=== PATIENT | male | born 1940 | race Caucasian/White ===

== ENCOUNTER 2023-12-16 08:32 | Outpatient (CLI) | payer MEDICARE, OTHER, SELFPAY ==
--- NOTE | 2023-12-16 08:44 | XR_ITS ---
FINAL REPORT CLINICAL HISTORY: foot pain FINDINGS: Left foot Three views were obtained. There is no acute fracture or dislocation. The bones are osteopenic. There is marked flattening and deformity of the calcaneus, probably due to sequela of prior fracture. 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 There are mild hypertrophic changes of the 1st metatarsophalangeal. No soft tissue abnormality is identified. IMPRESSION: Degenerative and chronic appearing findings. Reviewed, Interpreted and Dictated by Nic Perez MD Transcribed by Aruna Yanes Authenticated and . [facility]
--- NOTE | 2023-12-16 08:44 | XR_ITS ---
FINAL REPORT CLINICAL HISTORY: foot pain FINDINGS: Right foot Three views were obtained. There is no acute fracture or dislocation. The bones are osteopenic. There is flattening of the distal portion of the 2nd metatarsal. No associated sclerosis is identified. No soft tissue abnormality is identified. IMPRESSION: Flattening of the distal 2nd metatarsal, may be degenerative. Reviewed, Interpreted and Dictated by Nic Perez MD Transcribed by Aruna Yanes Authenticated and . [facility]
== END 2023-12-16 23:59 | disposition home or self-care (01) ==
LOC: RAD 08:35
PROVIDERS: PCP Family Medicine; Visit Provider Podiatrist
DX: M79.671 Pain in right foot (principal); M79.672 Pain in left foot; M19.171 Post-traumatic osteoarthritis, right ankle and foot; M19.172 Post-traumatic osteoarthritis, left ankle and foot
CPT/HCPCS: 73630

== ENCOUNTER 2023-12-24 10:28 | Outpatient (CLI) | payer MEDICARE, OTHER, SELFPAY ==
--- NOTE | 2023-12-24 10:32 | US_ITS ---
FINAL REPORT CLINICAL HISTORY: discoloation of the lower extremities, ex-smoker, HTN, TIA/CVA, Claudication COMPARISON: None FINDINGS: ANKLE-BRACHIAL PRESSURE INDICES Pressure indices are as follows: RIGHT LOWER EXTREMITY: Ankle-brachial pressure index: 1.13 Comments: Normal LEFT LOWER EXTREMITY: Ankle-brachial pressure index: 1.11 Comments: Normal CONCLUSION: No evidence of significant obstructive peripheral vascular disease of the lower extremities Reviewed, Interpreted and Dictated by Wild Tejada III, MD Transcribed by Rosalee Fish Authenticated and [facility]
== END 2023-12-24 23:59 | disposition home or self-care (01) ==
LOC: RT 10:28
PROVIDERS: PCP Family Medicine; Visit Provider Podiatrist
DX: I73.9 Peripheral vascular disease, unspecified (principal)
CPT/HCPCS: 93923

== ENCOUNTER 2024-08-03 11:48 | Outpatient (CLI) | payer MEDICARE, OTHER, SELFPAY | END 2024-08-03 23:59 | disposition home or self-care (01) | LOC: RT 11:49 | PROVIDERS: PCP Family Medicine; Visit Provider Physician Assistant | DX: I49.1 Atrial premature depolarization (principal); I47.19 Other supraventricular tachycardia; I49.3 Ventricular premature depolarization | CPT/HCPCS: 93270; 93272 ==

== ENCOUNTER 2024-08-24 08:52 | Outpatient (CLI) | payer MEDICARE, OTHER, SELFPAY ==
--- OUTSIDE RECORDS SUMMARY | 2024-08-24 08:57 | XMS_ITS | Data Portability ---
Author Organization ROMI STEVAN Cain [facility] CLOS[facility] Address [address] [place] [address] Care Team Providers Care Extrusion Press Operator Name Role Phone JOHN TAVARES Primary Care Provider Assessment Encounter Date Assessment Date Assessment LastModified by Organization Details LastModified Time 06/15/2022 06/15/2022 RTC in 6 weeks [email or web address] Not available 06/15/2022 12:45:26 07/26/2022 07/26/2022 RTC in 6 weeks Stiolto seems to be the only inhaler that did not cause his stomach upset. It is difficult to tell if it actually helped his breathing. He will do an extended trial of 1 month of Stiolto samples and then 2 weeks without Stiolto and then he will return to decide if he wants a prescription for it. Not available 07/26/2022 10:25:30 09/05/2022 09/05/2022 RTC PRN [email or web address] Not available 08/17 09:30:08 Plan of Treatment Reminders Order Date Submit Date Provider Last Modified By Organization Details Last Modified Time Details Appointments None recorded. Lab None recorded. Referral None recorded. Procedures None recorded. Surgeries None recorded. Imaging None recorded. Medication Orders ipratropium bromide 42 mcg (0.06 %) nasal spray [email or web address] [facility] [address] [place], [address], 08:57:06 Patient TargetsNo targets recorded. Patient InstructionsNo instructions recorded. Reason for Referral None Reported. Results Created Date Observation Date Name Description Value Unit Range Abnormal Flag Note LastModifiedBy Organization Detail LastModifiedTime 06/21/1910/31/2020 CT, chest , w/o contr ast No observ ation record ed. BARCODE Not Available 2022 11:54:10 06/21/19 23 10/02/2019 CT, chest , w/o contr ast No observ ation record ed. BARCODE Not Available 2022 11:54:10 06/21/19 23 06/26/2019 CT, chest , w/o contr ast No observ ation record ed. BARCODE Not Available 2022 11:54:10 06/21/19 23 02/27/2019 CT, chest , w/o contr ast No observ ation record ed. BARCODE Not Available 2022 11:54:11 Result Notes None recorded. Problems Name Problem SNOMED Code Status Onset Date Resolution Date Notes Provider Name and Address Organization Details Recorded Time Chronic obstructive pulmonary disease 84608441 Active 023 LALO AVELAR MD [address] [place] [address], [phone] , [facility] 3 12:45:10 Ex-smoker 8116189 Active 023 LALO AVELAR MD [address] [place] [address], [phone], [facility] 3 12:45:11 Hiatal hernia 00537620 Active 023 LALO AVELAR MD [address] [place] [address], [phone] , [facility] 3 12:45:15 Problem Notes None recorded. Procedures Surgical History Date Name Laterality Status Provider Name and Address Organization Details Recorded Time 06/16/19 23 Airway Resistance completed Manda Nicole [facility] 06/15/2022 11:07:10 06/16/19 23 [facility] 11:07:09 06/16/19 23 Lung Volumes, Plethysmography completed Manda [facility] 06/15/2022 11:07:12 06/16/19 23 Demonstration Aerosol/Generator/N ebulizer/Optichambe r completed [facility] 06/15/2022 11:07:15 06/16/19 23 Spirometry with Bronchodilator completed [facility] 06/15/2022 11:07:19 procedure on foot completed [facility] 06/15/2022 11:11:45 operation on urinary bladder completed [facility] 06/15/2022 11:12:50 Imaging Results None recorded. Procedure Notes None recorded. Medical Equipment None Reported. Allergies Allergen ID Allergen Name Allergen Category Reaction Reaction Severity Criticality Documentation Date Start Date Code Code System Note Provider Name and Address Organization Details Recorded Time 624165 clopidogr el medicatio n Not available Not available Not available 06/15/2022 08838 [facility] 10:55:37 [id number] Brilinta medicatio n Not available Not available Not available 06/15/2022 75663 36 [facility] 10:55:44 Medications Name Sig Start Date Stop Date Status Note LastModified by Organization Details LastModified Time losartan 50 mg tablet Take 1 tablet every day by oral route. active Not Available Not Available No t Available Qvar 80 mcg/actuati on Metered Aerosol oral inhaler Two times a day 06/15 completed Frequ ency: bid;M edica tion Descr iptio n: beclo metha sone; Dosag e:1 inhal ation ; Route :inha latio n; refil ls:0 Not Available Not Available Not Available atorvastati n 80 mg tablet Take 1 tablet every day by oral route. active Not Available Not Available No t Available diltiazem CD 180 mg capsule,ext ended release 24 hr Take 1 capsule every day by oral route. active Not Available Not Available No t Available alendronate 70 mg tablet Take 1 tablet every week by oral route. active Not Available Not Available No t Available tamsulosin 0.4 mg capsule Take 1 capsule every day by oral route. active Not Available Not Available No t Available ipratropium bromide 42 mcg (0.06 %) nasal spray [place] 2 sprays 3 times a day by intranasa l route as needed. 07/26 completed Not Available Not Available Not Available finasteride 5 mg tablet Take 1 tablet every day by oral route. active Not Available Not Available No t Available Aspir-Myranda 325 mg tablet,jian yed release Take 1 tablet every day by oral route. active Not Available Not Available No t Available Calcium-Vit vaughn D Daily active Frequ ency: daily ;Medi catio n Descr iptio n: calci um-vi tamin D; Dosag e:1; Route :oral ; refil ls:0 Not Available Not Available Not Available ProAir HFA 90 mcg/actuati on aerosol inhaler As needed 07/26 completed Frequ ency: prn;M edica tion Descr iptio n: albut padmini; Dosag e:2 inhal ation s; Route :inha latio n; refil ls:0 Not Available Not Available Not Available Vitals Date Recorded Body height Body mass index (BMI) Body weight Oxygen saturation Oxygen saturation in Arterial blood by Pulse oximetry Heart rate Systolic blood pressure Diastolic blood pressure Provider Name and Address Organization Details Last Updated DateTime 3 162.56 cm 22.7 kg/m2 43999.1 9 g 98 % 98 % 93 /min 130 mm[Hg] 70 mm[Hg] Manda Rivera [facility] 3 10:53:58 Date Recorded Body height Body mass index (BMI) Body weight Heart rate Oxygen saturation Oxygen saturation in Arterial blood by Pulse oximetry Systolic blood pressure Diastolic blood pressure Provider Name and Address Organization Details Last Updated DateTime 3 162.56 cm 23.5 kg/m2 18553.8 5 g 64 /min 97 % 97 % 138 mm[Hg] 82 mm[Hg] Nikky Cordova [facility] 3 08:56:20 Date Recorded Body height Body mass index (BMI) Body weight Heart rate Oxygen saturation Oxygen saturation in Arterial blood by Pulse oximetry Systolic blood pressure Diastolic blood pressure Provider Name and Address Organization Details Last Updated DateTime 3 162.56 cm 23.5 kg/m2 14597.1 5 g 70 /min 100 % 100 % 115 mm[Hg] 68 mm[Hg] Leena Bravo [facility] 09:06:26 Social History Question Answer Notes LastModified by Organizat ion Details LastModified Time Tobacco Smoking Status Former Smoker Manda Rivera thad [facility] 06/15/2022 11:08:06 When Did You Quit Smoking? 11-15yearssi ncjaleesa cohente [email or web address] Information not available 06/15/2022 At What Age Did You Start Smoking Tobacco? 20 [email or web address] Information not available 06/15/2022 How Many Years Have You Smoked Tobacco? 50 [email or web address] Information not available 06/15/2022 Have You Recently Traveled Abroad? No Information not available 07/26/2022 Sex: Unknown Functional Status Question Answer Note LastModified by Organizat ion Details LastModified Time Do you use any illicit or recreational drugs? No [email or web address] Information not available 06/15/2022 Do you or have you ever used any other forms of tobacco or nicotine? No [email or web address] Information not available 06/15/2022 What is your level of alcohol consumption? Moderate Information not available 06/15/2022 Are you currently employed? No Information not available 07/26/2022 What is your exercise level? Moderate 3-4 times a week goes to the gym Information not available 07/26/2022 Mental Status None recorded. Family History Relationship Description Onset Age of this Age Resolved Age Notes LastModified by Organization Details LastModified Time Unspecified Relation Family history of stroke [email or web address] Not available 2022 11:08:04 Medical History Condition Response Diabetes N Chronic Obstructive Pulmonary Disease Y Sleep Apnea N Thyroid Disorder N Emphysema N Tuberculosis N Ulcers N Asthma N Pneumonia N Past Encounters Encounter ID Performer Location Encounter Start Date Encounter Closed Date Diagnosis/Indication Diagnosis SNOMED-CT Code Diagnosis ICD10 Code Diagnosis Note [id number] [facility] [address] 06/21/2016 06:15:46 06/21/2016 06:15:46 [id number] LALO AVELAR MD PULMONARY [address], [address] [place] [address] 06/15/2022 10:27:10 06/15/2022 13:04:57 Chronic cough 85569218 R05.3 Multifacto rial. He certainly has COPD and we will send him home with treatments for that. He has had significan t postnasal drip which I think is probably a large airport driver of his cough. I will put him on ipratropiu m for that. Could also has a contributi on from his hiatal hernia. Chronic ob structive pulmonary disease 76824723 J44.9 Stop smoking. Severe by FEV1 1.07 (45%).He is not currently on any maintenanc e inhaler therapy.He does not have hypoxemic respirator y failure from it. We will send him home with samples of Trelegy, Stiolto, and Breztri to cycle 3 over the next couple of weeks. Posterior rhinorrhea 758 18614 R09.82 Hiatal hernia 93936072 K 44.9 Ex-smoker 4902238 Z87.89 1 50-pack-ye ar smoker. Stopped smoking in 2010. Underwent low-dose CT screening from 2018October 2020 until he exceeded the age recommenda tions for low-dose screening. He had both calcified granulomas and noncalcifi ed nodules that were stable during that imaging time. The largest was an 8 mm right upper lobe nodule. He no longer qualifies for low-dose cancer screening, if his cough does not improve with COPD and sinus treatments , I would recommend repeat CT imaging. [id number] LALO AVELAR MD PULMONARY [address] [facility], [address] [place] [address] 07/26/2022 08:45:22 07/26/2022 10:39:56 Chronic cough 62389590 R05.3 Multifacto rial. COPD. Post nasal drip. Hiatal hernia. Chronic ob structive pulmonary disease 81435618 J44.9 Stop smoking. Severe by FEV1 1.07 (45%).He is not currently on any maintenanc e inhaler therapy.He does not have hypoxemic respirator y failure from it. We will send him home with samples of Trelegy, Stiolto, and Breztri to cycle 3 over the next couple of weeks.---- ---------T relegy made him nauseous and gave him hiccups and did not help him. Per history brought no tangible benefit. Stiolto helped him a little bit with out causing many problems. He would like to do a more extended trial of Stiolto. Ex-smoker 9788510 Z87. 1 50-pack-ye ar smoker. Stopped smoking in 2010. Underwent low-dose CT screening from 2018October 2020 until he exceeded the age recommenda tions for low-dose screening. He had both calcified granulomas and noncalcifi ed nodules that were stable during that imaging time. The largest was an 8 mm right upper lobe nodule. He no longer qualifies for low-dose cancer screening, if his cough does not improve with COPD and sinus treatments , I would recommend repeat CT imaging. Posterior rhinorrhea 758 40486 R09.82 Didn't like ipra. Hiatal hernia 15887162 K 44.9 [id number] LALO AVELAR MD PULMONARY [address] [facility], [address] [place] [address] 09/05/2022 08:38:02 09/05/2022 11:00:50 Chronic obstructive pulmonary disease 30896699 J44.9 Stop smoking. Severe by FEV1 1.07 (45%).He is not currently on any maintenanc e inhaler therapy.He does not have hypoxemic respirator y failure from it. We will send him home with samples of Trelegy, Stiolto, and Breztri to cycle 3 over the next couple of weeks.---- ---------A ll inhaler trials gave him indigestio n and loss of appetite and generally made feel ill with no tangible benefit. Without long-actin g inhalers, he feels like he is doing well. He would prefer to just use as needed albuterol. Chronic cough 61415742 R 05.3 Multifacto rial. COPD. Post nasal drip. Hiatal hernia. Ex-smoker 4828397 Z87 1 50-pack-ye ar smoker. Stopped smoking in 2010. Underwent low-dose CT screening from 2018October 2020 until he exceeded the age recommenda tions for low-dose screening. He had both calcified granulomas and noncalcifi ed nodules that were stable during that imaging time. The largest was an 8 mm right upper lobe nodule. He no longer qualifies for low-dose cancer screening, if his cough does not improve with COPD and sinus treatments , I would recommend repeat CT imaging. Posterior rhinorrhea 758 88970 R09.82 Didn't like ipra. Hiatal hernia 90749090 K 44.9 I discussed how this and silent reflux can drive nocturnal cough. Health Concerns Section Related Observation LastModified by Organization Detai ls LastModified Time None Recorded Concern Status LastModified by Organization Details LastModified Time None Recorded Advance Directives Directive None Recorded Payers Insurance Date Sequence Insurance Name Policy Number Policy Young Covered Member ID Young Member ID Guarantor Name 09/05/2022 2 [employer] [place] Robison Drew [id number] Fareed Robison Drew 09/05/2022 1 MEDICARE-[place] (MEDICARE) Fareed Enriqueta Drew [id number] Fareed Russell Notes Date Note Type Note Provider Name and Address Organization Details Recorded Time 06/15/2022 text/html Jax Russell is an 81-year-old white male who comes in for new patient evaluation of COPD. He has a significant smoking history up until 2010 when he stopped smoking. He reports previously being evaluated by Dr. Bueno in roughly 2014 and was diagnosed with COPD at that point in time but was just on albuterol. He reports never being on long-acting maintenance inhalers. His biggest complaint is chronic cough. He coughs throughout the day and he feels like he gets mucus stuck in the back of his throat and he has intense coughing trying to clear it out. He will sometimes cough to the point of emesis. He does deal with chronic sinus drainage and postnasal drip for which she takes Zyrtec-D. He also has a history of a small hiatal hernia and reflux. He Is not limited by shortness of breath with exertion. No hemoptysis. He started getting low-dose CT screening in roughly 2019. He had some abnormal nodularity that led him to visit Dr. Mon who felt like it was order entry representative of MAC. Patient states that he never had bronchoscopy for culture or MAC treatment. He just underwent surveillance imaging. His surveillance imaging stopped in 2010 when he moved out of the age qualifications for annual low-dose CT screening D [place]: Pulmonary function testing 06/15/2022: Severe obstructive ventilatory defect that improves to moderate after significant bronchodilator response. Gas trapping. Normal gas exchange. FEV1 1.07 (45%) FVC 2.19 (69%) ratio 49% post albuterol FEV1 is 1.38 (58%) (+28%) and FVC 2.46 (78%) (+12%). TLC 86% RV 109% DLCO 73% Low-dose CT chest 10/31/2020 report: Compared to imaging from 02/27/2019 and 10/02/2019. Stable 8 mm noncalcified right upper lobe nodule. Other subcentimeter pulmonary nodules are stable. Evidence of prior calcified granulomatous disease. Small hiatal hernia. LALO AVELAR MD [address] [place] [address], [phone], [facility] 06/15/2022 12:46:43 07/26/2022 text/html Interval history : Fareed is doing much better. Shortness of breath is essentially resolved, but he doesn't know if it was from the inhalers I gave him. He is able to walk 2 miles on the treadmill regularly without limitations. He still has some cough but it is generally better. He did not generally have great experiences with any of his medicines that I tried on him. He stopped the ipratropium nose spray because they felt like it hurt his stomach. Likewise, he felt that Trelegy gave him an upset stomach and nausea and hiccups and did not improve his breathing or cough. He felt that Breztri while it did not cause him any problems, did not cause him anything that he felt was an improvement. He says the jury is still out on Stiolto. It did not cause him any problems he thinks it might of improved his breathing a little bit and his cough some, but he would like to do a more extended trial of the Stiolto. ------Historical HPI:Jax Russell is an 81-year-old white male who comes in for new patient evaluation of COPD. He has a significant smoking history up until 2010 when he stopped smoking. He reports previously being evaluated by Dr. Bueno in roughly 2014 and was diagnosed with COPD at that point in time but was just on albuterol. He reports never being on long-acting maintenance inhalers. His biggest complaint is chronic cough. He coughs throughout the day and he feels like he gets mucus stuck in the back of his throat and he has intense coughing trying to clear it out. He will sometimes cough to the point of emesis. He does deal with chronic sinus drainage and postnasal drip for which she takes Zyrtec-D. He also has a history of a small hiatal hernia and reflux. He Is not limited by shortness of breath with exertion. No hemoptysis. He started getting low-dose CT screening in roughly 2018. He had some abnormal nodularity that led him to visit Dr. Mon who felt like it was order entry representative of MAC. Patient states that he never had bronchoscopy for culture or MAC treatment. He just underwent surveillance imaging. His surveillance imaging stopped in 2010 when he moved out of the age qualifications for annual low-dose CT screening D [place]: Pulmonary function testing 06/15/2022: Severe obstructive ventilatory defect that improves to moderate after significant bronchodilator response. Gas trapping. Normal gas exchange. FEV1 1.07 (45%) FVC 2.19 (69%) ratio 49% post albuterol FEV1 is 1.38 (58%) (+28%) and FVC 2.46 (78%) (+12%). TLC 86% RV 109% DLCO 73% Low-dose CT chest 10/31/2020 report: Compared to imaging from 02/27/2019 and 10/02/2019. Stable 8 mm noncalcified right upper lobe nodule. Other subcentimeter pulmonary nodules are stable. Evidence of prior calcified granulomatous disease. Small hiatal hernia. LALO AVELAR MD [address] [place] [address], [phone], [facility] 07/26/2022 10:25:49 09/05/2022 text/html Interval history : Fareed is doing well now. His trial with Stiolto did not go well. He felt like it caused him to have significant indigestion and loss of appetite. Since stopping his Stiolto, his stomach issues have resolved. No significant shortness of breath. No wheezing. He prefers to use just as needed albuterol. -Fareed is doing much better. Shortness of breath is essentially resolved, but he doesn't know if it was from the inhalers I gave him. He is able to walk 2 miles on the treadmill regularly without limitations. He still has some cough but it is generally better. He did not generally have great experiences with any of his medicines that I tried on him. He stopped the ipratropium nose spray because they felt like it hurt his stomach. Likewise, he felt that Trelegy gave him an upset stomach and nausea and hiccups and did not improve his breathing or cough. He felt that Breztri while it did not cause him any problems, did not cause him anything that he felt was an improvement. He says the jury is still out on Stiolto. It did not cause him any problems he thinks it might of improved his breathing a little bit and his cough some, but he would like to do a more extended trial of the Stiolto. ------Historical HPI:Jax Russell is an 81-year-old white male who comes in for new patient evaluation of COPD. He has a significant smoking history up until 2010 when he stopped smoking. He reports previously being evaluated by Dr. Bueno in roughly 2014 and was diagnosed with COPD at that point in time but was just on albuterol. He reports never being on long-acting maintenance inhalers. His biggest complaint is chronic cough. He coughs throughout the day and he feels like he gets mucus stuck in the back of his throat and he has intense coughing trying to clear it out. He will sometimes cough to the point of emesis. He does deal with chronic sinus drainage and postnasal drip for which she takes Zyrtec-D. He also has a history of a small hiatal hernia and reflux. He Is not limited by shortness of breath with exertion. No hemoptysis. He started getting low-dose CT screening in roughly 2018. He had some abnormal nodularity that led him to visit Dr. Mon who felt like it was order entry representative of MAC. Patient states that he never had bronchoscopy for culture or MAC treatment. He just underwent surveillance imaging. His surveillance imaging stopped in 2010 when he moved out of the age qualifications for annual low-dose CT screening D [place]: Pulmonary function testing 06/15/2022: Severe obstructive ventilatory defect that improves to moderate after significant bronchodilator response. Gas trapping. Normal gas exchange. FEV1 1.07 (45%) FVC 2.19 (69%) ratio 49% post albuterol FEV1 is 1.38 (58%) (+28%) and FVC 2.46 (78%) (+12%). TLC 86% RV 109% DLCO 73% Low-dose CT chest 10/31/2020 report: Compared to imaging from 02/27/2019 and 10/02/2019. Stable 8 mm noncalcified right upper lobe nodule. Other subcentimeter pulmonary nodules are stable. Evidence of prior calcified granulomatous disease. Small hiatal hernia. LALO AVELAR MD [address] [place] [address], [phone], [facility] 09/05/2022 09:31:30
--- OUTSIDE RECORDS SUMMARY | 2024-08-24 08:57 | XMS_ITS | Clinical Summary ---
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 L97.422 (ICD-10-CM ) 07/03 Active 07/03 Ruth Esparza Non-pressure chronic ulcer of left heel and midfoot with fat layer exposed Non-pressure chronic ulcer of left heel limited to breakdown of skin L97.421 (ICD-10-CM ) 07/03 Active 07/03 Ruth Esparza Non-pressure chronic ulcer of left heel and midfoot limited to breakdown of skin Cellulitis, foot, left 496176511 (SNOMED CT) 07/03 Active 07/03 Ruth Esparza Cellulitis of foot Osteomyeliti s, chronic, left heel M86.679 (ICD-10-CM ) 04/14 Resolved 04/14 Ruth Esparza Other chronic osteomyelitis, unspecified ankle and foot Benign Essential Hypertension 78352429 (SNOMED CT) 07/03 Active 07/03 Ruth Esparza Benign hypertension Hereditary or idiopathic neuropathy 474806235 (SNOMED CT) 04/14 Active 04/14 Ruth Esparza Neuropathy MRSA INFECTION 968449940 (SNOMED CT) 07/07 Resolved 07/07 Ruth Esparza Methicillin resistant Staphylococcus aureus infection E coli Infection 81996486 (SNOMED CT) 04/14 Resolved 04/14 Ruth Esparza Infection caused by Escherichia coli MSSA infection 228396622 (SNOMED CT) 04/14 Resolved 04/14 Ruth Esparza Infection by methicillin sensitive Staphylococcus aureus Obesity 612462939 (SNOMED CT) 08/03 Correction 08/03 Aundrea Ye RN Obesity Obesity 426264138 (SNOMED CT) 08/03 Removed 08/03 Florin Sanders MD Obesity MRSA INFECTION 703978510 (SNOMED CT) 07/07 Removed 07/07 Ruth Isaias Methicillin resistant Staphylococcus aureus infection Anemia, chronic 673626591 (SNOMED CT) 04/14 Inactive 04/14 Ruth Isaias Chronic anemia Gas gangrene: left foot A48.0 (ICD-10-CM ) 04/14 Inactive 04/14 Ruth Isaias Gas gangrene Fever, unspecified 430857181 (SNOMED CT) 06/03 Inactive 06/03 Ruth Isaias Fever Fever, unspecified 259303240 (SNOMED CT) 06/03 Removed 06/03 Florin Sanders MD Fever MSSA infection 953858441 (SNOMED CT) 04/14 Removed 04/14 Enid Nordan Infection by methicillin sensitive Staphylococcus aureus E coli Infection 56236880 (SNOMED CT) 04/14 Removed 04/14 Enid Nordan Infection caused by Escherichia coli Osteomyeliti s, chronic, left heel M86.679 (ICD-10-CM ) 04/14 Removed 04/14 Enid Nordan Other chronic osteomyelitis, unspecified ankle and foot Gas gangrene: left foot A48.0 (ICD-10-CM ) 04/14 Removed 04/14 Enid Nordan Gas gangrene Anemia, chronic 479928112 (SNOMED CT) 04/14 Removed 04/14 Enid Nordan Chronic anemia peripheral neuropathy 002860291 (SNOMED CT) 04/14 Inactive 04/14 Enid Norddariana Peripheral nerve disease Medications Medication Instructions Start Date Stop Date Generic Name NDC Provider METOPROLOL TARTRATE 25 MG TABS bid metoprolol tartrate 70247454486 Viri Cordova BACTRIM 400-80 MG TABS bid for 1- days sulfamethoxazole -trimethoprim 87653556234 Viri Cordova ZYRTEC ALLERGY TABLET ZYRTEC ALLERGY TABLET Marnie Minor ADULT ASPIRIN LOW STRENGTH 81 MG ORAL TABLET DISINTEGRATING ADULT ASPIRIN LOW STRENGTH 81 MG ORAL TABLET DISINTEGRATING Marnie Minor HYDROXYZINE HCL 10 MG TABS hydroxyzine hcl 88014364957 Marnie Minor ALIGN CAPSULE ALIGN CAPSULE Marnie Minor VITAMIN C TABLET VITAMIN C TABLET Marnie Minor DOXYCYCLINE HYCLATE 100 MG CAPS 1 by mouth twice a day doxycycline hyclate 52035291416 Marnie Minor IRON TABLET IRON TABLET Marnie Minor HYDROCODONE-ACETA MINOPHEN TABS HYDROCODONE-ACET AMINOPHEN TABS Marnie Minor LOMOTIL 2.5-0.025 MG TABS diphenoxylate-at ropine 73132505553 Marnie Minor FINASTERIDE 5 MG TABS by mouth once a day finasteride 81239971885 Marnie Minor TAMSULOSIN HCL 0.4 MG CAPS by mouth once a day tamsulosin 03031912338 Marnie Minor BREZTRI AEROSPHERE 160-9-4.8 MCG/ACT AERO as directed budesonide-glyco pyr-formoterol 98270271912 Marnie Minor ALENDRONATE SODIUM 70 MG TABS by mouth once a week alendronate 17401536518 Marnie Minor NAPROSYN 500 MG TABS by mouth twice a day naproxen 55124484204 Marnie Minor ASPIRIN 325 MG TABS by mouth once a day aspirin 00546063788 Marnie Minor DILTIAZEM HCL ER COATED BEADS 360 MG [id number] by mouth once a day diltiazem hcl (cardizem cd) 29007234437 Marnie Minor LOSARTAN POTASSIUM 50 MG TABS by mouth once a day losartan 43287342094 Marnie Minor ATORVASTATIN CALCIUM 40 MG TABS by mouth 2 tabs QD atorvastatin 65610453829 Marnie Minor VENTOLIN HFA 108 (90 Base) MCG/ACT AERS as directed albuterol sulfate 86897102863 Marnie Minor PREDNISONE 20 MG TABS by mouth prednisone 01956564353 Marnie Minor ZYRTEC ALLERGY TABS CETIRIZINE HCL TABS 30149427189 Florin Sanders MD ADULT ASPIRIN LOW STRENGTH 81 MG ORAL TABLET DISINTEGRATING ASPIRIN 24902007013 Florin Sanders MD INVANZ 1 GM INTRAVENOUS SOLUTION RECONSTITUTED 1 gm IV daily [facility] ERTAPENEM SODIUM 21961966393 Brittney Z FORTAZ (IV) 1GM IV q12hr IP 277-2012 [facility] [phone] FORTAZ (IV) Brittney Z DOXYCYCLINE HYCLATE 100 MG CAPS One po bid x 30 d DOXYCYCLINE HYCLATE 97052925022 Florin Sanders MD ALIGN CAPSULE PROBIOTIC PRODUCT CAPS 39168460890 Florin Sanders MD VITAMIN C TABLET ASCORBIC ACID TABS 25676502061 Florin Sanders MD IRON TABS FERROUS GLUCONATE TABS 99696314513 Florin Sanders MD LOMOTIL TABS DIPHENOXYLATE-AT ROPINE TABS 33078835520 Florin Sanders MD HYDROXYZINE HCL TABS HYDROXYZINE HCL TABS 15936464981 Florin Sanders MD FORTAZ (IV) 1GM IV q12hr IP 277-2012 [facility] [phone] Christie Townsend RN VANCOMYCIN HCL 750 MG SOLR 1GM IV q12hr IP 277-2012 [facility] [phone] VANCOMYCIN HCL 00036584585 Christie Townsend RN VANCOMYCIN HCL 750 MG SOLR 750mg IV q12hr IP 277-2012 [facility] [phone] VANCOMYCIN HCL 61963909830 Christie Townsend RN HYDROCODONE-ACETA MINOPHEN TABS HYDROCODONE-ACET AMINOPHEN TABS 94316969102 Tanisha P ENOXAPARIN SODIUM 30 MG/0.3ML SUBCUTANEOUS SOLUTION INJECT CONTENTS OF 1 SYRINGE UNDER SKIN 2 TIMES A DAY DIRECTED ENOXAPARIN SODIUM 04298256675 Tanisha P ENOXAPARIN SODIUM 30 MG/0.3ML SUBCUTANEOUS SOLUTION INJECT CONTENTS OF 1 SYRINGE UNDER SKIN 2 TIMES A DAY DIRECTED ENOXAPARIN SODIUM 82880682951 Rohit Soriano INVANZ 1 GM INTRAVENOUS SOLUTION RECONSTITUTED 1 gm IV daily [facility] ERTAPENEM SODIUM 64159629391 Tanisha P Medications Administered No information available. Allergies, Adverse Reactions, Alerts No information available. Results Date Name Value Unit Range Flag Description Chart Maintenance: 05/04 labs ESR 14 mm/h Erythrocyte sedimentation rate by Westergren method Chart Maintenance: 06/15 labs MONOCYTE % 12.5 % Monocytes/ 100 leukocytes in Blood by Automated count BILI TOTAL 0.7 mg/dL Bilirubin. total [Mass/volume] in Serum or Plasma CALCIUM 9.6 mg/dL Calcium [Mole s/volume] in Serum or Plasma Chart Maintenance: 06/29/13 l abs ALK PHOS 108 U/L Alkaline kristine sphatase [Enzymatic activity/volume] in Blood SGPT (ALT) 16 U/L Alanine aminotransferase [Enzymatic activity/volume] in Serum or Plasma SGOT (AST) 15 U/L Aspartate aminotransferase [Enzymatic activity/volume] in Serum or Plasma POTASSIUM 4.04 mmol/L Potassium [Moles/volume] in Serum or Plasma SODIUM 138.5 mmol/L Sodium [Moles /volume] in Serum or Plasma CREATININE 0.9 mg/dL Creatinine [Mass/volume] in Serum or Plasma BUN 20 mg/dL Urea nitrogen [Mass/volume] in Serum or Plasma GLUCOSE SER 92 mg/dL Glucose [ Mass/volume] in Serum or Plasma LYMPHS % 10.3 % Lymphocytes/ 100 leukocytes in Blood by Automated count PMN % 63.9 % Neutrophils/1 00 leukocytes in Blood by Automated count PLATELETS 188 10*3/mm3 Platelets [#/volume] in Blood by Automated count HCT 40.4 % Hematocrit [V olume Fraction] of Blood by Automated count HGB 13.1 g/dL Hemoglobin [Mass/volume] in Blood RBC 4.38 10*6/mm3 Erythrocytes [#/volume] in Blood by Automated count WBC 4.6 10*3/mm3 Leukocytes [ #/volume] in Blood by Automated count Chart Maintenance: vancomyci n trough 12.2 06/29 VANCOMY CHAL 12.2 ug/mL vancomyc in level, serum, trough Office Visit: Office Visit:r nicolasaom 9 SMOK STATUS Former smoker Tob acco smoking status MEDS REVIEW Done Documenta tion of current medications (procedure) Plan of Care Type Date Detail Pending order Continue oral an tibiotics Pending order Discontinue IV a ntibiotics Pending order PICC Removal Pending order New Oral Antibio tic Pending order Continue IV anti biotics Pending order Redress Wound Pending order Change IV antibi otics Pending order Continue IV anti biotics Pending order New IV antibioti c Pending order Continue IV anti biotics Pending order Continue IV anti biotics Procedures Code Procedure Name Date Entry Date [id number] PICC line insertion Vital Signs Date Name Value Unit Description BMI (Body Mass Index) 19.79 kg/m2 Bod y Mass Index (Ratio) Body Temperature 97.7 [degF] temperat ure E&M BP Diastolic 72 mm[Hg] blood pressu re, diastolic BP Systolic 142 mm[Hg] blood pressur e, systolic Heart Rate 80 /min pulse rate Height 68 [in_us] height E&M Respiratory Rate 16 /min respirat ory rate E&M Weight Measured 130.2 [lb_av] weight E& M Weight Measured 130.2 [lb_av] weight E& M Immunizations No information available. Advance Directives Directive Description Start Date LIVING WILL ON FILE
--- OUTSIDE RECORDS SUMMARY | 2024-08-24 08:57 | XMS_ITS | Referral Summary ---
Author Organization [facility] Address [address] [place] [address] Care Team Providers Care Plant Supervisor Name Role Phone Unavailable Primary Care Provider Unavailabl e Allergies No known active allergies Medications metoprolol succinate (TOPROL-XL) 50 MG 24 hr tablet Take 1 tablet (50 mg total) by mouth daily. Active tamsulosin (FLOMAX) 0.4 mg Cap 24 hr capsule Take 1 capsule (0.4 mg total) by mouth daily. Active finasteride (PROSCAR) 5 mg tablet Take 1 tablet (5 mg total) by mouth daily. Active aspirin 81 MG EC tablet Take 325 mg by mouth daily. Active Social History Tobacco Use Types Packs/Day Years Used Date Smoking Tobacco: Former Cigarettes Smokeless Tobacco: Never Tobacco Cessation:Counseling Given: Not Answered Alcohol Use Standard Drinks/Week Comments Yes 0 (1 standard drink = 0.6 oz pur e alcohol) Interpersonal Safety Answer Date Record ed Family or friends hurt you Not on file 10/01 Family or friends insult you Not on file Family or friends threaten you Not on file 0 10/02/2023 Family or friends scream or curse at you Not on file 10/02/2023 Food Insecurity Answer Date Recorded Food run out past 12 months Not on file 09/15 Food did not last past 12 months Not on file 10/02/2023 Employment Answer Date Recorded Help finding and keeping a job Not on file 0 10/02/2023 Family and Community Support Answer Po e Recorded Help with Day to Day Activities Not on file 10/02/2023 Feeling Lonely or Isolated Not on file 10/01 Educational Attainment Answer Date Shakir rded Speak language other than Albanian at home Not on file 10/02/2023 Want help with school or training Not on file 10/02/2023 Depression Answer Date Recorded PHQ-2 Risk Not on file 10/02/2023 Disabilities Answer Date Recorded Difficulty concentrating Not on file 024 Difficulty doing errands alone Not on file 0 10/02/2023 Substance Use Answer Date Recorded Used prescription meds for non-medical reasons N ot on file 10/02/2023 Used illegal drugs past 12 months Not on file 10/02/2023 Sex and Gender Information Value Date Recorded Sex Assigned at Not on file 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 Gender Identity Not on file Sexual Orientation Not on file Last Filed Vital Signs Vital Sign Reading Time Taken Comments Blood Pressure 186/85 10/03/2023 10:23 AM EDT Pulse 62 10/03/2023 10:23 AM EDT Temperature 36.5 C (97.7 F) 10/03/2023 10:23 AM EDT Respiratory Rate 16 10/03/2023 10:23 AM EDT Oxygen Saturation 97% 10/03/2023 10:23 AM EDT Inhaled Oxygen Concentration - - Weight 58.8 kg (129 lb 9.6 oz) 10/03/2023 10:23 AM EDT Height 170.2 cm (5' 7 ) 10/03/2023 10:23 AM EDT Body Mass Index 20.3 10/03/2023 10:23 AM EDT Plan of Treatment Not on file Insurance MEDICARE PART A B MEDICARE PART A B MEDICARE [place] [address] [place] [address]
--- OUTSIDE RECORDS SUMMARY | 2024-08-24 08:57 | XMS_ITS | Clinical Summary ---
Author Organization [facility] Address [address] [place] [address] Care Team Providers Care Custom Bike Builder Name Role Phone Rene Lovelace MD Primary Care Provider [phone] Social History Tobacco Use Types Packs/Day Years Used Date Smoking Tobacco: Never Assessed Sex and Gender Information Value Date Recorded Sex Assigned at Not on file Legal Sex Male 6:24 PM EDT Gender Identity Not on file Sexual Orientation Not on file Plan of Treatment Health Maintenance Due Date Last Done Comments [facility]-Depression Screening 1941 [facility]-Infant/Child/Adol SDOH Screenings 1941 [facility]- SDOH Screenings 10/29/1959 [facility]-Adult SDOH Screenings 10/29/1959 [facility]-DTaP,Tdap,and Td Vaccine s (1 - Tdap) 1960 [facility]-Pneumococcal Vaccine: 50 + Years (1 of 1 - PCV) 10/29/1991 [facility]-Zoster Vaccines (1 of 2) 10/29/1991 [facility]-RSV Vaccine: 60+ Years o r (1 - 1-dose 75+ series) 2016 [facility]H-[id number]-24 Vaccine (1 - 20 24-25 season) 2023 [facility]-Influenza Vaccine (Seaso n Ended) 2024 HPV Vaccines Aged Out No longer eligi ble based on patient's age to complete this topic [facility]-HIB Vaccines Aged Out No longer e ligible based on patient's age to complete this topic [facility]-Hepatitis A Vaccines Aged Out No longer eligible based on patient's age to complete this topic [facility]-IPV Vaccines Aged Out No longer e ligible based on patient's age to complete this topic [facility]-Rotavirus Vaccines Aged Out No lo nger eligible based on patient's age to complete this topic Care Teams Custom Bike Builder Relationship Specialty Start Date End Date Rene Lovelace MD [address] [id number] PCP - General 07/29/20
--- OUTSIDE RECORDS SUMMARY | 2024-08-24 08:57 | XMS_ITS | Clinical Summary ---
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 Gender Identity Not on file Sexual Orientation [...] 10/03/2023 10:23 AM EDT Plan of Treatment Health Maintenance Due Date Last Done Comments Depression Screening (12+) 1952 DTAP/TDAP/TD VACCINES (1 - Tdap) 1960 Medicare Initial AWV [id number] 10/18/2007 Respiratory Syncytial Virus (RSV) Adult or (1 - 1-dose 75+ series) 2016 COVID-19 VACCINE ( season) 2023 01/18/2021, 06/10/2020, 05/11/2020 Falls Risk Screening 03/18/2024 Tobacco Cessation Counseling and Screening (12+) 10/02/2024 10/03/2023 Influenza Vaccine (Season Ended) 2024 Pneumococcal 50+ years Completed 01/12/2016, 2014 Shingles Vaccine (Zoster) Completed 05/29/2022, Insurance MEDICARE PART A B [place] [address] [place] [address] [address] [place] [address]
[2024-08-24 09:15] LABS: Blood Urea Nitrogen 16 mg/dl (9-20); Estimated Glomerular Filt Rate 72 ml/min (>60); GFR (African American) 87 ML/MIN (>60)
--- NOTE | 2024-08-24 09:30 | CT_ITS ---
FINAL REPORT TECHNIQUE: NASCET technique utilized for stenosis evaluation. CLINICAL HISTORY: HX TIA COMPARISON: None FINDINGS: RIGHT CAROTID: There is mild vascular calcification without significant stenosis identified. LEFT CAROTID: There is moderate vascular calcification producing approximately 50% luminal diameter stenosis of the left carotid bulb. VERTEBRALS: The right vertebral artery is dominant. No significant stenosis is present. Incidental note is made of moderate facet sclerosis in the cervical region. IMPRESSION: Mild vascular calcification without significant stenosis is present in the right carotid artery. Moderate vascular calcification in the left carotid bulb produces approximately 50% luminal diameter stenosis. Antegrade flow is present in the vertebral arteries. Reviewed, Interpreted and Dictated by Nic Perez MD Transcribed by Rosalee Fish Authenticated and [facility]
[2024-08-24] MEDS: 0.9 % SODIUM CHLORIDE 50 ML VIAL IV (10:00)
[2024-08-24] MEDS: SODIUM CHLORIDE 0.9% 10ML SYR (RAD ONLY) 10 ML IV (10:00)
[2024-08-24] MEDS: IOPAMIDOL-370 (76%);100ML BOTTLE 100 ML IV (10:00)
--- NOTE | 2024-08-24 10:45 | CT_ITS ---
FINAL REPORT TECHNIQUE: thin section axial CT with and without IV contrast supplemented with multiplanar 3-D reconstruction of the head. This study was performed with techniques to keep radiation doses as low as reasonably achievable, (ALARA)individualized dose reduction techniques using automated exposure control or adjustment of mA and/or kV according to the patient's size were employed. CLINICAL HISTORY: HX TIA COMPARISON: None FINDINGS: HEAD CT: The ventricles are normal in size. There is no evidence of hemorrhage. No masses are identified. No extra-axial fluid is seen. There is moderate mucoperiosteal thickening of the ethmoid and maxillary sinuses. CTA: The cranial circulation is unremarkable. There is no significant stenosis, aneurysm or occlusion. IMPRESSION: No acute process. Moderate mucoperiosteal thickening of the ethmoid and maxillary sinuses. Reviewed, Interpreted and Dictated by Nic Perez MD Transcribed by Rosalee Fish Authenticated and . [facility]
== END 2024-08-24 23:59 | disposition home or self-care (01) ==
LOC: RAD 08:53
PROVIDERS: PCP Family Medicine; Visit Provider Physician Assistant
DX: J34.89 Other specified disorders of nose and nasal sinuses (principal); R06.09 Other forms of dyspnea; Z86.73 Personal history of transient ischemic attack (TIA), and cerebral infarction without residual deficits
CPT/HCPCS: 36415; 70496; 70498; 82565; 84520; Q9967

== ENCOUNTER 2024-08-27 07:44 | Outpatient (CLI) | payer MEDICARE, OTHER, SELFPAY ==
--- NOTE | 2024-08-27 | CA_ITS ---
APPROVED REPORT Exam: Pharmacologic Technologist: Quyen Sadler Ht: 5 ft 7 in Wt: 126 lbs BSA: 1.66 m2 Medical History Medications: Albuterol, alendronate, aspirin, finasteride, metoprolol succinate ER, tamsulosin Stress Test Details Test: Lexiscan HR Resting HR: 53 bpm Max Heart Rate (APMHR): 138.241034 bpm Max HR Achieved: 79 bpm Target HR (85% APMHR): 117.346928 bpm % of APMHR: 57.25 Recovery HR: 65 bpm BP Resting BP: 167.0/67.0 mmHg Max BP: 181.0/71.0 mmHg Recovery BP: 169.0/77.0 mmHg ECG Resting ECG: SR. No isch or ectopy Stress ECG Conclusion Symptoms: None. Arrhythmias/Ectopy: Rare PVCs. ST-T Changes: None. Electronically signed by : Sandra Canales MD 08/27/2024 14:19:33
--- OUTSIDE RECORDS SUMMARY | 2024-08-27 07:46 | XMS_ITS | Clinical Summary ---
Author Organization [facility] Address [address] [place] [address] Care Team Providers Care Turbine Assembler Name Role Phone Rene Lovelace MD Primary Care Provider [phone] Social History Tobacco Use Types Packs/Day Years [...] r (1 - 1-dose 75+ series) 2016 [id number] Vaccine (1 - 20 24-25 season) 2023 [...] age to complete this topic Care Teams Turbine Assembler Relationship Specialty Start Date End Date Rene Lovelace MD [address] [phone] PCP - General 07/29/20
--- OUTSIDE RECORDS SUMMARY | 2024-08-27 07:46 | XMS_ITS | Referral Summary ---
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
--- OUTSIDE RECORDS SUMMARY | 2024-08-27 07:46 | XMS_ITS | Clinical Summary ---
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
--- OUTSIDE RECORDS SUMMARY | 2024-08-27 07:46 | XMS_ITS | Clinical Summary ---
Author Organization [facility] Address [address] [place] [address] Phone Care Team Providers Care Animal Tech Name Role Phone Wild Zaidi MD [phone] [ ] Conditions or Problems Problem Name [...] to breakdown of skin Cellulitis, foot, left 748118892 (SNOMED CT) 07/03 Active 07/03 Ruth Esparza Cellulitis of foot Osteomyeliti s, chronic, left heel M86.679 (ICD-10-CM ) 04/14 Resolved 04/14 Ruth Esparza Other chronic osteomyelitis, unspecified ankle and foot Benign Essential Hypertension 44145960 (SNOMED CT) 07/03 Active 07/03 Ruth Esparza Benign hypertension Hereditary or idiopathic neuropathy 001420330 (SNOMED CT) 04/14 Active 04/14 Ruth Esparza Neuropathy MRSA INFECTION 655426286 (SNOMED CT) 07/07 Resolved 07/07 Ruth Esparza Methicillin resistant Staphylococcus aureus infection E coli Infection 81944141 (SNOMED CT) 04/14 Resolved 04/14 Ruth Esparza Infection caused by Escherichia coli MSSA infection 710388464 (SNOMED CT) 04/14 Resolved 04/14 Ruth Esparza Infection by methicillin sensitive Staphylococcus aureus Obesity 071224012 (SNOMED CT) 08/03 Correction 08/03 Aundrea Ye RN Obesity Obesity 159025680 (SNOMED CT) 08/03 Removed 08/03 Florin Sadners MD Obesity MRSA INFECTION 207955645 (SNOMED CT) 07/07 Removed 07/07 Ruth Isaias Methicillin resistant Staphylococcus aureus infection Anemia, chronic 943439716 (SNOMED CT) 04/14 Inactive 04/14 Ruth Isaias Chronic anemia Gas gangrene: left foot A48.0 (ICD-10-CM ) 04/14 Inactive 04/14 Ruth Isaias Gas gangrene Fever, unspecified 031702433 (SNOMED CT) 06/03 Inactive 06/03 Ruth Isaias Fever Fever, unspecified 631393824 (SNOMED CT) 06/03 Removed 06/03 Florin Sanders MD Fever MSSA infection 147458471 (SNOMED CT) 04/14 Removed 04/14 Enid Nordan Infection by methicillin sensitive Staphylococcus aureus E coli Infection 10865880 (SNOMED CT) 04/14 Removed 04/14 Enid Nordan Infection caused by Escherichia coli Osteomyeliti s, chronic, left heel M86.679 (ICD-10-CM ) 04/14 Removed 04/14 Enid Nordan Other chronic osteomyelitis, unspecified ankle and foot Gas gangrene: left foot A48.0 (ICD-10-CM ) 04/14 Removed 04/14 Enid Nordan Gas gangrene Anemia, chronic 287171961 (SNOMED CT) 04/14 Removed 04/14 Enid Nordan Chronic anemia peripheral neuropathy 444164639 (SNOMED CT) 04/14 Inactive 04/14 Enid Norddariana Peripheral nerve disease Medications Medication Instructions Start Date Stop Date Generic Name NDC Provider METOPROLOL TARTRATE 25 MG TABS bid metoprolol tartrate 56425230697 Viri Cordova BACTRIM 400-80 MG TABS bid for 1- days sulfamethoxazole -trimethoprim 43734273761 Viri Cordova ZYRTEC ALLERGY TABLET ZYRTEC ALLERGY TABLET Marnie Minor ADULT ASPIRIN LOW STRENGTH 81 MG ORAL TABLET DISINTEGRATING ADULT ASPIRIN LOW STRENGTH 81 MG ORAL TABLET DISINTEGRATING Marnie Minor HYDROXYZINE HCL 10 MG TABS hydroxyzine hcl 83728730306 Marnie Minor ALIGN CAPSULE ALIGN CAPSULE Marnie Minor VITAMIN C TABLET VITAMIN C TABLET Marnie Minor DOXYCYCLINE HYCLATE 100 MG CAPS 1 by mouth twice a day doxycycline hyclate 92144316389 Marnie Minor IRON TABLET IRON TABLET Marnie Minor HYDROCODONE-ACETA MINOPHEN TABS HYDROCODONE-ACET AMINOPHEN TABS Marnie Minor LOMOTIL 2.5-0.025 MG TABS diphenoxylate-at ropine 90800132433 Marnie Minor FINASTERIDE 5 MG TABS by mouth once a day finasteride 04439526307 Marnie Minor TAMSULOSIN HCL 0.4 MG CAPS by mouth once a day tamsulosin 96867097125 Marnie Minor BREZTRI AEROSPHERE 160-9-4.8 MCG/ACT AERO as directed budesonide-glyco pyr-formoterol 67818722596 Marnie Minor ALENDRONATE SODIUM 70 MG TABS by mouth once a week alendronate 38183304679 Marnie Minor NAPROSYN 500 MG TABS by mouth twice a day naproxen 13761820487 Marnie Minor ASPIRIN 325 MG TABS by mouth once a day aspirin 86006218547 Marnie Minor DILTIAZEM HCL ER COATED BEADS 360 MG [id number] by mouth once a day diltiazem hcl (cardizem cd) 19659032416 Marnie Minor LOSARTAN POTASSIUM 50 MG TABS by mouth once a day losartan 01894568006 Marnie Minor ATORVASTATIN CALCIUM 40 MG TABS by mouth 2 tabs QD atorvastatin 49105639355 Marnie Minor VENTOLIN HFA 108 (90 Base) MCG/ACT AERS as directed albuterol sulfate 00435459142 Marnie Minor PREDNISONE 20 MG TABS by mouth prednisone 19603573107 Marnie Minor ZYRTEC ALLERGY TABS CETIRIZINE HCL TABS 53427687123 Florin Sanders MD ADULT ASPIRIN LOW STRENGTH 81 MG ORAL TABLET DISINTEGRATING ASPIRIN 05479213568 Florin Sanders MD INVANZ 1 GM INTRAVENOUS SOLUTION RECONSTITUTED 1 gm IV daily [facility] ERTAPENEM SODIUM 17374684424 Brittney Z FORTAZ (IV) 1GM IV q12hr IP 277-2012 [facility] [phone] FORTAZ (IV) Brittney Z DOXYCYCLINE HYCLATE 100 MG CAPS One po bid x 30 d DOXYCYCLINE HYCLATE 16364825890 Florin Sanders MD ALIGN CAPSULE PROBIOTIC PRODUCT CAPS 15349661812 Florin Sanders MD VITAMIN C TABLET ASCORBIC ACID TABS 17511540573 Florin Sanders MD IRON TABS FERROUS GLUCONATE TABS 46465313755 Florin Sanders MD LOMOTIL TABS DIPHENOXYLATE-AT ROPINE TABS 24609074982 Florin Sanders MD HYDROXYZINE HCL TABS HYDROXYZINE HCL TABS 50405689479 Florin Sanders MD FORTAZ (IV) 1GM IV q12hr IP 277-2012 [facility] [phone] Christie Townsend RN VANCOMYCIN HCL 750 MG SOLR 1GM IV q12hr IP 277-2012 [facility] [phone] VANCOMYCIN HCL 11947693345 Christie Townsend RN VANCOMYCIN HCL 750 MG SOLR 750mg IV q12hr IP 277-2012 [facility] [phone] VANCOMYCIN HCL 08225877898 Christie Townsend RN HYDROCODONE-ACETA MINOPHEN TABS HYDROCODONE-ACET AMINOPHEN TABS 15013458290 Tanisha P ENOXAPARIN SODIUM 30 MG/0.3ML SUBCUTANEOUS SOLUTION INJECT CONTENTS OF 1 SYRINGE UNDER SKIN 2 TIMES A DAY DIRECTED ENOXAPARIN SODIUM 93105849455 Tanisha P ENOXAPARIN SODIUM 30 MG/0.3ML SUBCUTANEOUS SOLUTION INJECT CONTENTS OF 1 SYRINGE UNDER SKIN 2 TIMES A DAY DIRECTED ENOXAPARIN SODIUM 46012039287 Rohit Soriano INVANZ 1 GM INTRAVENOUS SOLUTION RECONSTITUTED 1 gm IV daily [facility] ERTAPENEM SODIUM 65427744282 Tanisha P Medications Administered No information available. [...] Procedures Code Procedure Name Date Entry Date [id number] PICC line insertion Vital Signs Date Name [...]
--- OUTSIDE RECORDS SUMMARY | 2024-08-27 07:47 | XMS_ITS | Data Portability ---
Author Organization [facility] Address [address] [place] [address] Care Team Providers Care Market President Name Role Phone JOHN TAVARES Primary Care Provider [phone] Assessment Encounter Date Assessment Date Assessment LastModified by Organization Details LastModified Time 06/15/2022 06/15/2022 RTC in 6 weeks [email or web address] Not available 06/15/2022 12:45:26 07/26/2022 07/26/2022 RTC [...] available 07/26/2022 10:25:30 09/05/2022 09/05/2022 RTC PRN [email or web address] Not available 08/17 09:30:08 Plan of Treatment Reminders Order Date Submit Date Provider Last Modified By Organization Details Last Modified Time Details Appointments None recorded. Lab None recorded. Referral None recorded. Procedures None recorded. Surgeries None recorded. Imaging None recorded. Medication Orders ipratropium bromide 42 mcg (0.06 %) nasal spray 2022 023 [email or web address] [facility] [address] [place], [address], 08:57:06 Patient TargetsNo targets recorded. Patient InstructionsNo [...] Details Recorded Time Chronic obstructive pulmonary disease 14880627 Active 023 LALO AVELAR MD [address] [place] [address], [phone] , [facility] 3 12:45:10 Ex-smoker 5219425 Active 023 LALO AVELAR MD [address] [place] [address], [phone], [facility] 3 12:45:11 Hiatal hernia 25937828 Active 023 LALO AVELAR MD [address] [place] [address], [phone] , [facility] 3 12:45:15 Problem Notes None recorded. Procedures Surgical History Date Name Laterality Status Provider Name and Address Organization Details Recorded Time 06/16/19 23 Airway Resistance completed Manda Nicole [facility] 06/15/2022 11:07:10 06/16/19 23 [facility] 11:07:09 06/16/19 23 Lung Volumes, Plethysmography completed Manda [facility] 06/15/2022 11:07:12 06/16/19 23 Demonstration Aerosol/Generator/N ebulizer/Optichambe r completed [facility] 06/15/2022 11:07:15 06/16/19 23 Spirometry with Bronchodilator completed [facility] 06/15/2022 11:07:19 procedure on foot completed [facility] 06/15/2022 11:11:45 operation on urinary bladder completed [facility] 06/15/2022 11:12:50 Imaging Results None recorded. Procedure Notes None recorded. Medical Equipment None Reported. Allergies Allergen ID Allergen Name Allergen Category Reaction Reaction Severity Criticality Documentation Date Start Date Code Code System Note Provider Name and Address Organization Details Recorded Time 351580 clopidogr el medicatio n Not available Not available Not available 06/15/2022 84910 [facility] 10:55:37 226701 Brilinta medicatio n Not available Not available Not available 06/15/2022 09704 36 [facility] 10:55:44 Medications Name Sig Start Date [...] bromide 42 mcg (0.06 %) nasal spray [place] 2 sprays 3 times a day by [...] Updated DateTime 3 162.56 cm 22.7 kg/m2 82586.1 9 g 98 % 98 % 93 /min 130 mm[Hg] 70 mm[Hg] Manda Rivera [facility] 3 10:53:58 Date Recorded Body height Body mass index (BMI) Body weight Heart rate Oxygen saturation Oxygen saturation in Arterial blood by Pulse oximetry Systolic blood pressure Diastolic blood pressure Provider Name and Address Organization Details Last Updated DateTime 3 162.56 cm 23.5 kg/m2 11734.8 5 g 64 /min 97 % 97 % 138 mm[Hg] 82 mm[Hg] Nikky Cordova [facility] 3 08:56:20 Date Recorded Body height Body mass index (BMI) Body weight Heart rate Oxygen saturation Oxygen saturation in Arterial blood by Pulse oximetry Systolic blood pressure Diastolic blood pressure Provider Name and Address Organization Details Last Updated DateTime 3 162.56 cm 23.5 kg/m2 26518.1 5 g 70 /min 100 % 100 % 115 mm[Hg] 68 mm[Hg] Leena Bravo [facility] 09:06:26 Social History Question Answer Notes LastModified by Organizat ion Details LastModified Time Tobacco Smoking Status Former Smoker Manda Rivera thad [facility] 06/15/2022 11:08:06 When Did You Quit Smoking? 11-15yearssi [email or web address] cohente [email or web address] Information not available 06/15/2022 At What Age Did You Start Smoking Tobacco? 20 [email or web address] Information not available 06/15/2022 How Many Years Have You Smoked Tobacco? 50 [email or web address] Information not available 06/15/2022 Have You Recently Traveled Abroad? No Information not available 07/26/2022 Sex: Unknown Functional Status Question Answer Note LastModified by Organizat ion Details LastModified Time Do you use any illicit or recreational drugs? No [email or web address] Information not available 06/15/2022 Do you or have you ever used any other forms of tobacco or nicotine? No [email or web address] Information not available 06/15/2022 What is your level of alcohol consumption? Moderate [email or web address] Information not available 06/15/2022 Are you currently employed? No Information not available 07/26/2022 What is your exercise level? Moderate 3-4 times a week goes to the gym Information not available 07/26/2022 Mental Status None recorded. Family History Relationship Description Onset Age of this Age Resolved Age Notes LastModified by Organization Details LastModified Time Unspecified Relation Family history of stroke [email or web address] Not available 2022 11:08:04 Medical History Condition Response Diabetes N Chronic Obstructive Pulmonary Disease Y Sleep Apnea N Thyroid Disorder N Emphysema N Tuberculosis N Ulcers N Asthma N Pneumonia N Past Encounters Encounter ID Performer Location Encounter Start Date Encounter Closed Date Diagnosis/Indication Diagnosis SNOMED-CT Code Diagnosis ICD10 Code Diagnosis Note [id number] [facility] [address] 06/21/2016 06:15:46 06/21/2016 06:15:46 [id number] LALO AVELAR MD PULMONARY [address] [facility], [address] [place] [address] 06/15/2022 10:27:10 06/15/2022 13:04:57 Chronic cough 07037494 R05.3 Multifacto rial. He certainly has COPD and we will send him home with treatments for that. 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 I will put him on ipratropiu m for that. Could also has a contributi on from his hiatal hernia. Chronic ob structive pulmonary disease 56057528 J44.9 Stop smoking. Severe by FEV1 1.07 (45%).He is not currently on any maintenanc e inhaler therapy.He does not have hypoxemic respirator y failure from it. We will send him home with samples of Trelegy, Stiolto, and Breztri to cycle 3 over the next couple of weeks. Posterior rhinorrhea 758 35783 R09.82 Hiatal hernia 96388731 K 44.9 Ex-smoker 3129173 Z87.89 1 50-pack-ye ar smoker. Stopped smoking [...] , I would recommend repeat CT imaging. [id number] LALO AVELAR MD PULMONARY [address] [facility], [address] [place] [address] 07/26/2022 08:45:22 07/26/2022 10:39:56 Chronic cough 28598457 R05.3 Multifacto rial. COPD. Post nasal drip. Hiatal hernia. Chronic ob structive pulmonary disease 21204140 J44.9 Stop smoking. Severe by FEV1 1.07 [...] a more extended trial of Stiolto. Ex-smoker 4907636 Z87. 1 50-pack-ye ar smoker. Stopped smoking [...] recommend repeat CT imaging. Posterior rhinorrhea 758 62592 R09.82 Didn't like ipra. Hiatal hernia 90332030 K 44.9 [id number] LALO AVELAR MD PULMONARY [address] [facility], [address] [place] [address] 09/05/2022 08:38:02 09/05/2022 11:00:50 Chronic obstructive pulmonary disease 74897548 J44.9 Stop smoking. Severe by FEV1 1.07 [...] just use as needed albuterol. Chronic cough 68607209 R 05.3 Multifacto rial. COPD. Post nasal drip. Hiatal hernia. Ex-smoker 6933279 Z87 1 50-pack-ye ar smoker. Stopped smoking [...] recommend repeat CT imaging. Posterior rhinorrhea 758 83786 R09.82 Didn't like ipra. Hiatal hernia 92845066 K 44.9 I discussed how this and silent reflux can drive nocturnal cough. 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 Patient states that he [...] disease. Small hiatal hernia. LALO AVELAR MD [address] [place] [address], [phone], [facility] 06/15/2022 12:46:43 07/26/2022 text/html Interval history : [...] Dr. Mon who felt like it was patient financial representative of [employer]. Patient states that he [...] disease. Small hiatal hernia. LALO AVELAR MD [address] [place] [address], [phone], [facility] 07/26/2022 10:25:49 09/05/2022 text/html Interval history : [...] Dr. Mon who felt like it was patient financial representative of [employer]. Patient states that he [...] disease. Small hiatal hernia. LALO AVELAR MD [address] [place] [address], [phone], [facility] 09/05/2022 09:31:30
--- NOTE | 2024-08-27 08:00 | NM_ITS ---
APPROVED REPORT Exam: Nuclear Stress Test Indication: soa Patient Location: Outpatient Stress Tech: Quyen Fuentes CT Tech:Kylie CotterMARY RT(R)(N) Ht: 5 ft 7 in Wt: 129 lbs HR: 53 bpm BP: 167/67 mmHg BSA: 1.68 m2 TID: 1.05 BMI: 20.2 History: soa Procedure: Patient received 0.4 mg of intravenous Lexiscan, resting heart rate 53 bpm, resting blood pressure 167/67 mmHg, with Lexiscan maximum heart rate achieved was 70 bpm which is 85 % of the maximum predicted heart rate and blood pressure was 181/71 mmHg. With Lexiscan, patient denied any complaint of chest pain. Cardiac Stress and Resting SPECT Images: Cardiac Stress and Resting SPECT images were obtained using technetium 99m Myoview 31.5 mCi stress and 10.84 mCi at rest. Resting and stress imaging in supine and prone positions demonstrate a large sized, moderate, partially reversible perfusion defect in the inferior wall. Imaging demonstrates normal global LV systolic function. LVEF is calculated at 54%. Conclusion: Large sized, moderate, partially reversible perfusion defect in the inferior wall. Findings are suggestive of partial reversible ischemia. Imaging demonstrates normal global LV systolic function. LVEF is calculated at 54%. Electronically signed by : Sandra Canales MD 08/27/2024 14:18:45
[2024-08-27] MEDS: ISOTOPE MYOVIEW (PER STUDY) 1 DOSE IV (10:26)
[2024-08-27] MEDS: SODIUM CHLORIDE 0.9% 10ML SYR (RAD ONLY) 10 ML IV ×2 (10:26)
[2024-08-27] MEDS: REGADENOSON 0.4MG/5ML SYRINGE 0.4 MG IV (10:26)
--- NOTE | 2024-08-27 10:30 | CA_ITS ---
APPROVED REPORT EXAM: Comprehensive 2D, Doppler, and color-flow Echocardiogram Molder Pipe Covering: Mariana Jones CRT Ht: 5 ft 7 in Wt: 124lbs BSA: 1.65 BP: 158/76 mmHg Indications: Dyspnea 2D Dimensions Left Atrium 3.52 cm LVEF (Ferreira's) 64.10 % RVID Base (AP4) 3.38 cm (M/F) 2.5-4.1 LV Volume 76.30 mL LVOT 2.01 cm (M/F) 1.5-2.5 LA Volume 26.80 mL LA Volume Index 16.20 mL/m2 (M/F) 16-34 EF AP4 69.00 % EF AP2 61.5 % EF BP 64.1 % GL Strain -17.8 % M-Mode Dimensions RVDd 2.56 cm (0.9-2.6) LVDd 4.03 cm (3.5-5.7) Ao Diam 3.34 cm (2.0-3.7) LVDs 1.62 cm (3.5-5.7) IVSd 1.56 cm (0.6-1.1) PWd 0.56 cm (0.6-1.1) EF (Teich) 89.60% FS 59.80% EDV (Teich) 71.30 mL TAPSE 2.06 (<1.7) ESV (Teich) 7.40 mL LV Diastology E Decel Time 239 (160-240 msec) E/A Ratio 0.77 MED E' 8.2 (>= 7 cm/sec) MED A' 12.40 cm/s E'/MED E' Ratio 8.00 (<= 14) LAT E' 8.1 (>= 10 cm/sec) LAT A' 14.00 cm/s E/LAT E' Ratio 8.10 (<= 14) Aortic Valve LVOT Max 104.0 (70-110 cm/s) LVOT VTI 25.02 cm AoV Peak Channing. 131.0 (50-130 cm/s) AO Peak GR. 6.80 mmHg Mitral Valve MV E Max Channing. 66.0 (40-130 cm/s) MV A Velocity 85.0 (40-130 cm/s) E/A Ratio 0.77 MV Decel. Time 239 (160-240 ms) Tricuspid Valve TR P. Velocity 211.00 cm/s RAP Estimate 10.00 mmHg RVSP 27.70 mmHg Left Ventricle The left ventricle is normal size. The left ventricular systolic function is normal. The left ventricular ejection fraction is within the normal range. There is increased LV wall thickness. There is normal LV segmental wall motion. Transmitral Doppler flow pattern suggests impaired LV relaxation. LVEF is 55%. Right Ventricle Right ventricle is mildly dilated. The right ventricular systolic function is normal. Atria Left atrium is mildly dilated. Right atrium is mildly dilated. There is no Doppler evidence of interatrial shunt. Aortic Valve The aortic valve is moderately thickened. There is no hemodynamically significant aortic stenosis. Trace aortic regurgitation. Mitral Valve The mitral valve is mildly thickened. No evidence of mitral valve stenosis. Mild mitral regurgitation. Tricuspid Valve Tricuspid valve is grossly normal in structure and function. Mild tricuspid regurgitation. RVSP is 20-25 mmHg. Pulmonic Valve The pulmonary valve is normal in structure. Mild pulmonic regurgitation. Great Vessels The aortic root is normal in size. IVC is normal in size and collapses >50% with inspiration. Pericardium There is no pericardial effusion. Other Information Study Quality: Technically Difficult Conclusion Technically difficult study due to poor acoustic windows. Normal biventricular systolic function. Mild RV dilation. Biatrial dilation. Mild MR, mild TR, mild PI. Thickened AV, but no evidence of hemodynamically significant . Electronically signed by : Sandra Canales MD 09/02/2024 23:59:42
== END 2024-08-27 23:59 | disposition home or self-care (01) ==
LOC: RAD 07:45
PROVIDERS: PCP Family Medicine; Visit Provider Physician Assistant
DX: I08.8 Other rheumatic multiple valve diseases (principal); R94.39 Abnormal result of other cardiovascular function study; Z86.73 Personal history of transient ischemic attack (TIA), and cerebral infarction without residual deficits
CPT/HCPCS: 78452; 93017; 93018; 93306; A9502; J2785